=== PATIENT | female | born 1980 | race Caucasian/White ===

== ENCOUNTER 2018-06-06 13:43 | Emergency (ER) | payer BC ==
[2018-06-06 15:35] LABS: Hematocrit 38 % (35-47); Hemoglobin 12.7 g/dl (12.0-16.0); Mean Corpuscular HGB Conc 34 g/dl (31-36); Mean Corpuscular Hemoglobin 27 pg (27-31); Mean Corpuscular Volume 79 fL (80-97); Mean Platelet Volume 7.4 um3 (7.4-10.4); Platelet Count 494 10^3/ul (150-450); Red Blood Count 4.78 10^6/ul (4.00-5.40); Red Cell Distribution Width 13 % (10.5-15); White Blood Count 8.9 10^3/ul (3.5-10.8)
[2018-06-06 15:52] LABS: EGFR Non-African American 97.5 (>60)
[2018-06-06 16:46] VITALS: BP 151/90
--- NOTE | 2018-06-07 06:14 | ED ---
Skin Complaint - HPI Summary HPI Summary: Patient is an otherwise healthy 38-year-old female presenting to the ED with right-sided red streaking up the arm. She states she awoke this morning with some pain to the right arm immediately noticed a small 0.3 cm in diameter and with an approximately 15 cm in length extending from below the elbow to just above the elbow. While she noticed this upon awakening, the area has not changed in size. She denies any fevers, sweats, chills. She states she has been otherwise well. She states several days ago she sustained a small 0.2 cm cut to her finger, however this healed quickly and she denies any pain, redness or drainage from the area. She denies any other symptoms. She takes no medications and denies allergies. - History of Current Complaint Chief Complaint: EDExtremityUpper Time Seen by Provider: 06/06/18 14:40 Stated Complaint: RED LINE UP RIGHT ARM Hx Obtained From: Patient Hx Last Menstrual Period: 2 weeks ago Onset/Duration: Started Hours Ago Skin Exposure Onset/Duration: Hours Ago Timing: Constant Onset Severity: Mild Current Severity: Mild Pain Intensity: 0 Pain Scale Used: 0-10 Numeric Skin Location: Discrete - right forearm Aggravating Symptom(s): Touch Alleviating Symptom(s): Nothing Related History: Trauma - Allergy/Home Medications Allergies/Adverse Reactions: Allergies Allergy/AdvReac Type Severity Reaction Status Date / Time No Known Allergies Allergy Verified 06/06/18 13:52 PMH/Surg Hx/FS Hx/Imm Hx Previously Healthy: Yes Endocrine/Hematology History: Denies: Hx Diabetes Cardiovascular History: Denies: Hx Hypertension, Hx Pacemaker/ICD History: Denies: Hx Renal Disease Sensory History: Denies: Hx Hearing Aid Psychiatric History: Denies: Hx Panic Disorder - Surgical History Surgery Procedure, Year, and Place: WISDOM TEETH - Immunization History Hx Pertussis Vaccination: No Immunizations Up to Date: Unable to Obtain/Confirm Infectious Disease History: No Infectious Disease History: Denies: Traveled Outside the [place] in Last 30 Days - Social History Occupation: Employed Full-time Lives: With Family Alcohol Use: None Hx Substance Use: No Substance Use Type: Reports: None Hx Tobacco Use: No Smoking Status (MU): Never Smoked Tobacco Review of Systems Constitutional: Negative Negative: Fever, Chills, Fatigue, Skin Diaphoresis Negative: Palpitations, Chest Pain Negative: Shortness Of Breath, Cough Genitourinary: Negative Positive: no symptoms reported, see HPI Negative: Arthralgia, Myalgia Positive: Other - red streak from just below elbow to just above elbow measuring 15cm - small with no nodules Neurological: Negative All Other Systems Reviewed And Are Negative: Yes Physical Exam Triage Information Reviewed: Yes Vital Signs On Initial Exam: Initial Vitals Temp Pulse Resp BP Pulse Ox 98.5 F 73 16 153/96 100 06/06/18 13:47 06/06/18 13:47 06/06/18 13:47 06/06/18 13:47 06/06/18 13:47 Vital Signs Reviewed: Yes Appearance: Positive: Well-Appearing, Well-Nourished Skin: Positive: Warm, Skin Color Reflects Adequate Perfusion, Other - red streak from just below elbow to just above elbow measuring 15cm - small with no nodules Head/Face: Positive: Normal Head/Face Inspection Eyes: Positive: EOMI, ZORAIDA, Conjunctiva Clear Neck: Positive: Supple, No Lymphadenopathy Respiratory/Lung Sounds: Positive: Clear to Auscultation, Breath Sounds Present Cardiovascular: Positive: RRR, Pulses are Symmetrical in both Upper and Lower Extremities Musculoskeletal: Positive: Normal, Strength/ROM Intact Neurological: Positive: Speech Normal Psychiatric: Positive: Normal, Affect/Mood Appropriate AVPU Assessment: Alert Diagnostics - Vital Signs Vital Signs Temp Pulse Resp BP Pulse Ox 06/06/18 16:25 98.4 F 71 16 151/90 98 06/06/18 13:47 98.5 F 73 16 153/96 100 - Laboratory Lab Results: Lab Results 06/06/18 06/06/18 Range/Units 15:21 15:21 WBC 8.9 (3.5-10.8) 10^3/ul RBC 4.78 (4.00-5.40) 10^6/ul Hgb 12.7 (12.0-16.0) g/dl Hct 38 (35-47) % MCV 79 L (80-97) fL MCH 27 (27-31) pg MCHC 34 (31-36) g/dl RDW 13 (10.5-15) % Plt Count 494 H (150-450) 10^3/ul MPV 7.4 (7.4-10.4) um3 Sodium 136 (135-145) mmol/L Potassium 4.2 (3.5-5.0) mmol/L Chloride 103 (101-111) mmol/L Carbon Dioxide 26 (22-32) mmol/L Anion Gap 7 (2-11) mmol/L BUN 10 (6-24) mg/dL Creatinine 0.67 (0.51-0.95) mg/dL Est GFR ( Amer) 118.0 (>60) Est GFR (Non-Af Amer) 97.5 (>60) BUN/Creatinine Ratio 14.9 (8-20) Glucose 108 H (70-100) mg/dL Calcium 9.6 (8.6-10.3) mg/dL C-Reactive Protein 8.23 H (<8.01) mg/L Result Diagrams: 06/06/18 15:21 06/06/18 15:21 Lab Statement: Any lab studies that have been ordered have been reviewed, and results considered in the medical decision making process. Course/Dx - Course Course Of Treatment: Obtained labs and blood cultures. This does not appear to be a superficial thrombophlebitis as the area is not raised and she had no direct injury to the area such as needlestick. There streaking from a cellulitis. This appears to be lymphangitis likely secondary to a small cut in the distal tip of her finger. No nodules or obvious nidus noted. WBC WNL. Blood cultures obtained. Discussed close follow up and very strict return precautions as infection can spread easily. While she is asymptomatic otherwise , no fevers or chills and no evidence of nodules (nodular lymphangitis) and no lymphadenitits in the axillary or epitrochlear nodes, I feel she may be OK for discharge with keflex covering most common organism strep pyogenes and staph organisms. She will return immediately if there is any change in the appearance of she begins to develop a fever. She understands these strict return precautions. VS remain stable. - Differential Diagnoses - Skin Complaint Differential Diagnoses: Other - Cellulitis, superficial thrombophlebitis - Diagnoses Provider Diagnoses: Lymphangitis Discharge - Sign-Out/Discharge Documenting (check all that apply): Patient Departure - Discharge Plan Condition: Stable Disposition: HOME Prescriptions: Cephalexin CAP* [Keflex CAP*] 500 mg PO TID #21 cap MDD 3 Patient Education Materials: Lymphangitis (ED) Referrals: No Primary Care Phys,NOPCP [Primary Care Provider] - Additional Instructions: Keflex three times daily x 7 days If you develop fevers, sweats, chills, worsening pain or redness or worsening streaking up or down the arm he need to return to the ED immediately - Billing Disposition and Condition Condition: STABLE Disposition: Home
== END 2018-06-06 16:25 | disposition home or self-care (01) ==
LOC: ED 13:43
DX: I89.1 Lymphangitis (principal)
CPT/HCPCS: 36415; 80048; 85027; 86140; 87040; 99282